=== PATIENT | female | born 1990 | race Caucasian/White ===

== ENCOUNTER 2017-08-11 19:53 | Inpatient (IN) | payer MEDICAID ==
[~2017-08-11] VITALS: Ht 149.9 cm; Wt 80.7 kg
[~2017-08-11 19:53] MED LIST: PREN1TAB62 PO
[2017-08-11 20:30] VITALS: Ht 149.9 cm; Wt 80.7 kg
[2017-08-11 20:31] VITALS: BP 110/60; PULSE 77; RESP 18
[2017-08-11] MEDS ORDERED: AMPICILLIN 2 GM/NS (PMX) 100 ML IV ONE (21:30)
[2017-08-11] MEDS ORDERED: OXYTOCIN 30 UNITS/LR 500 ML IV PRN (21:30)
[2017-08-11] MEDS ORDERED: BUTORPHANOL 2 MG INJ IV PRN ×2 (21:30)
[2017-08-11] MEDS ORDERED: IBUPROFEN 600 MG TAB PO PRN (21:30)
[2017-08-11] MEDS ORDERED: CARBOPROST 250 MCG INJ IM PRN (21:30)
[2017-08-11] MEDS ORDERED: MISOPROSTOL 200 MCG TAB PR PRN (21:30)
[2017-08-11] MEDS ORDERED: OXYTOCIN 30 UNITS/LR 500 ML IV SCH (21:30)
[2017-08-11] MEDS ORDERED: HYDROCODONE/APAP (5/325) TAB PO PRN (21:30)
[2017-08-11] MEDS ORDERED: LIDOCAINE 1% (MPF) 30 ML INJ INJ PRN (21:30)
[2017-08-11] MEDS: LACTATED RINGER'S 1,000 ML IV SCH ×2 (22:42→23:51)
[2017-08-11 23:15] LABS: HEMATOCRIT 39.2 % (37.0-47.0); HEMOGLOBIN 13.8 g/dl (12.0-16.0); LYMPHOCYTES % 19.9 % (15.0-51.0); MEAN CORPUSCULAR HEMOGLOBIN 30.5 pg (29.0-33.0); MEAN CORPUSCULAR HGB CONC 35.2 g/dl (32.0-37.0); MEAN CORPUSCULAR VOLUME 86.5 fl (82.0-101.0); MEAN PLATELET VOLUME 9.8 fl (7.4-10.4); MONOCYTES % 4.4 % (0.0-11.0); NEUTROPHILS % 74.2 % (39.0-77.0); PLATELET COUNT 266 10^3/UL (140-415); RED BLOOD COUNT 4.53 10^6/ul (4.20-5.40); RED CELL DISTRIBUTION WIDTH 13.2 % (11.5-14.5); WHITE BLOOD COUNT 9.9 10^3/ul (4.8-10.8)
[2017-08-11 23:16] LABS: BASOPHILS % 0.3 % (0.0-2.0); EOSINOPHILS # 0.1 10^3/ul (0.0-0.5); EOSINOPHILS % 0.6 % (0.0-7.0); MONOCYTE # 0.4 10^3/ul (0.3-0.9); NEUTROPHIL # 7.4 10^3/ul (1.6-7.5)
[2017-08-11 23:42] LABS: INR 0.93; PROTIME 12.5 Sec (11.9-14.9)
[2017-08-11 23:43] LABS: PARTIAL THROMBOPLASTIN TIME 27.9 Sec (25.0-35.0)
[2017-08-12] MEDS ORDERED: FENTAnyl 2MCG/ML-ROPIV 0.2% 100 ML ONE (00:17)
[2017-08-12] MEDS ORDERED: AMPICILLIN 1 GM/NS (PMX) 50 ML IV SCH (01:30)
[2017-08-12] MEDS: AMPICILLIN 1 GM/NS (PMX) 50 ML IV SCH ×3 (02:59→11:00)
[2017-08-12] MEDS: LACTATED RINGER'S 1,000 ML IV SCH ×2 (07:31→17:37)
[2017-08-12] MEDS ORDERED: ONDANSETRON 4 MG INJ IV PRN (09:00)
[2017-08-12] MEDS ORDERED: DIPHENHYDRAMINE 50 MG INJ IV PRN (09:00)
[2017-08-12] MEDS ORDERED: HYDROmorphONE 0.5 MG/0.5 ML SYG IV PRN ×2 (09:00)
[2017-08-12] MEDS ORDERED: NALOXONE (0.4 MG/ML) INJ IV PRN (09:00)
[2017-08-12] MEDS ORDERED: FENTAnyl 2MCG/ML-ROPIV 0.2% 100 ML BAG EPI SCH (09:00)
[2017-08-12] MEDS ORDERED: ZOLPIDEM 5 MG TAB PO PRN ×2 (09:00→15:00)
[2017-08-12] MEDS: METHYLERGONOVINE 0.2 MG INJ IM PRN ×2 (09:28→10:49)
[2017-08-12] MEDS: OXYTOCIN 30 UNITS/LR 500 ML IV SCH ×4 (09:43→18:41)
--- NOTE | 2017-08-12 09:52 | HP ---
Date/Time of Note Date/Time of Note DATE: 08/12/17 TIME: 09:50 OB - History Hx of Present Free Text/Dictation : 2 Para: 1 Care: Good Care Ultrasounds: Normal mid trimester US Obstetrical Complications: None Medical Complications: None Past Family/Social History * Past Medical, Surgical, Family and Obstetric Histories reviewed from chart. OB Admission Exam Vital Signs Vital Signs Vital Signs Date Time Temp Pulse Resp B/P Pulse Ox O2 Delivery O2 Flow Rate FiO2 08/11/17 20:31 98.0 77 18 110/60 97 Physical Exam HEENT: WNL Heart: Rhythm Normal Lungs: Clear, Equal Abdomen: WNL Extremities: Normal Reflexes: Normal Cervical Dilatation: 10cm Effacement: 100% Station: +3 Membranes: Ruptured Amniotic Fluid: Clear Accelerations: Accelerations Present Decelerations: No Decelerations Intensity: Mild Last 72 hours Lab Results CBC & BMP 08/11/17 22:42 OB Assessment/Plan Reason for admission: active labor Plan: Expectant Management ADRIEL DANIELS MD Aug 12, 2017 09:51
--- NOTE | 2017-08-12 09:53 | LDN ---
Date/Time of Note Date/Time of Note DATE: 08/12/17 TIME: 09:52 Delivery Summary vaginal delivery w/o complications Placenta Delivered: Spontaneously Meconium: none Episiotomy: No Anesthesia type: Epidural Estimated blood loss: 300 Sponge & Needle done & correct: Yes All needle counts correct: Yes Any foreign bodies felt in the: No Problems: ADRIEL DANIELS MD Aug 12, 2017 09:53
[2017-08-12] MEDS: METHYLERGONOVINE 0.2 MG TAB PO SCH ×3 (13:02→21:26)
[2017-08-12 14:30] VITALS: BP 115/63; PULSE 73; RESP 18
[2017-08-12] MEDS: LACTATED RINGER'S 1,000 ML IV* SCH ×2 (14:41→19:35)
[2017-08-12] MEDS ORDERED: LANOLIN 7 GM TUBE TOP PRN (15:00)
[2017-08-12] MEDS ORDERED: SENNA/DOCUSATE NA (8.6MG/50MG) TAB PO PRN (15:00)
[2017-08-12] MEDS ORDERED: WITCH HAZEL/GLYCERIN PAD PR PRN (15:00)
[2017-08-12] MEDS ORDERED: HYDROCODONE/APAP (5/325) TAB PO PRN (15:00)
[2017-08-12] MEDS ORDERED: METHYLERGONOVINE 0.2 MG INJ IM PRN (15:00)
[2017-08-12] MEDS ORDERED: ACETAMINOPHEN 325 MG TAB PO PRN (15:00)
[2017-08-12] MEDS ORDERED: BENZOCAINE 20% 56 ML SPRAY TOP PRN (15:00)
[2017-08-12] MEDS ORDERED: MAGNESIUM HYDROXIDE 30ML CUP PO PRN (15:00)
[2017-08-12] MEDS ORDERED: DIPHENHYDRAMINE 25 MG CAP PO PRN (15:00)
[2017-08-12] MEDS ORDERED: OXYTOCIN 30 UNITS/LR 500 ML IV PRN (15:00)
[2017-08-12] MEDS ORDERED: MISOPROSTOL 200 MCG TAB PR PRN (15:00)
[2017-08-12] MEDS ORDERED: CARBOPROST 250 MCG INJ IM PRN (15:00)
[2017-08-12 16:15] VITALS: BP 106/58; PULSE 66; RESP 20
[2017-08-12] MEDS: IBUPROFEN 800 MG TAB PO SCH (18:17)
[2017-08-12 19:55] VITALS: BP_SYST 52; BP_SYST 92; BP_DIAS 52; PULSE 71; RESP 19
[2017-08-13 00:05] VITALS: BP 102/61; PULSE 79; RESP 18
[2017-08-13] MEDS: IBUPROFEN 800 MG TAB PO SCH ×5 (00:15→23:54)
[2017-08-13] MEDS: METHYLERGONOVINE 0.2 MG TAB PO SCH ×4 (01:03→14:25)
[2017-08-13 04:05] VITALS: BP 95/65; PULSE 69; RESP 18
[2017-08-13] MEDS: LACTATED RINGER'S 1,000 ML IV SCH (05:15)
[2017-08-13] MEDS: LACTATED RINGER'S 1,000 ML IV* SCH (06:41)
[2017-08-13 07:45] VITALS: BP 105/51; PULSE 63; RESP 19
[2017-08-13 09:17] LABS: BASOPHILS % 0.4 % (0.0-2.0); EOSINOPHILS # 0.1 10^3/ul (0.0-0.5); EOSINOPHILS % 0.7 % (0.0-7.0); HEMATOCRIT 37.2 % (37.0-47.0); HEMOGLOBIN 13.1 g/dl (12.0-16.0); LYMPHOCYTES # 1.8 10^3/ul (0.8-2.9); LYMPHOCYTES % 16.6 % (15.0-51.0); MEAN CORPUSCULAR HEMOGLOBIN 30.7 pg (29.0-33.0); MEAN CORPUSCULAR HGB CONC 35.2 g/dl (32.0-37.0); MEAN CORPUSCULAR VOLUME 87.1 fl (82.0-101.0); MEAN PLATELET VOLUME 9.6 fl (7.4-10.4); MONOCYTE # 0.3 10^3/ul (0.3-0.9); NEUTROPHIL # 8.6 10^3/ul (1.6-7.5); NEUTROPHILS % 78.7 % (39.0-77.0); PLATELET COUNT 226 10^3/UL (140-415); RED BLOOD COUNT 4.27 10^6/ul (4.20-5.40); RED CELL DISTRIBUTION WIDTH 13.4 % (11.5-14.5)
--- NOTE | 2017-08-13 11:46 | PN ---
Date/Time of Note Date/Time of Note DATE: 08/13/17 TIME: 11:43 OB Subjective Subjective Subjective Post day Doing Well Afebrile Ambulatory Chest Clear Breasts are soft , Nipples are intact Abdomen is soft Fundus is firm Moderate amount of lochia No calf tenderness No ankle edema Laboratory Tests Test 08/13/17 08:57 White Blood Count 11.010^3/ul Red Blood Count 4.2710^6/ul Hemoglobin 13.1g/dl Hematocrit 37.2% Mean Corpuscular Volume 87.1fl Mean Corpuscular Hemoglobin 30.7pg Mean Corpuscular Hemoglobin Concent 35.2g/dl Red Cell Distribution Width 13.4% Platelet Count 66541^3/UL Mean Platelet Volume 9.6fl Neutrophils % 78.7% Lymphocytes % 16.6% Monocytes % 3.0% Eosinophils % 0.7% Basophils % 0.4% Nucleated Red Blood Cells % 0.0/100WBC Neutrophils # 8.610^3/ul Lymphocytes # 1.810^3/ul Monocytes # 0.310^3/ul Eosinophils # 0.110^3/ul Basophils # 0.010^3/ul Nucleated Red Blood Cells # 0.010^3/ul Current Medications Medications (Trade) Dose Ordered Sig/Temi Route PRN Reason Start Time Stop Time Status Last Admin Dose Admin Lactated Ringer's 1,000 ml @ 125 mls/hr Q8H IV 08/11/17 21:15 08/12/17 17:37 Ampicillin 100 ml @ 100 mls/hr ONCE ONCE IV 08/11/17 21:30 08/11/17 22:29 DC 08/11/17 22:55 Ampicillin (Ampicillin 1 Gm/ NS (Pmx)) 50 ml @ 100 mls/hr Q4H IV 08/12/17 01:30 08/12/17 01:30 DC Butorphanol Tartrate (Stadol) 1 mg Q2H PRN IV PAIN 08/11/17 21:30 08/12/17 14:44 DC Butorphanol Tartrate (Stadol) 2 mg Q2H PRN IV PAIN 08/11/17 21:30 08/12/17 14:44 DC Lidocaine 30 ml 30 ml ONCE PRN INJ EPISIOTOMY/TEARING 08/11/17 21:30 08/12/17 14:44 DC Oxytocin/Lactated Ringer's 500 ml @ 125 mls/hr ONCE -MAY REPEAT X1 IV 08/11/17 21:30 08/12/17 14:44 DC 08/12/17 14:44 Oxytocin/Lactated Ringer's 500 ml @ 125 mls/hr ONCE IV 08/11/17 21:30 08/12/17 13:49 Ibuprofen (Motrin) 600 mg ONCE PRN PO Mild Pain (Pain Score 1-3) 08/11/17 21:30 08/12/17 10:29 Acetaminophen/ Hydrocodone Bitart 2 tab 2 tab ONCE PRN PO Moderate to Severe Pain (4-10) 08/11/17 21:30 08/12/17 14:44 DC Oxytocin/Lactated Ringer's 500 ml @ 0 mls/hr ONCE PRN IV For Hemorrhage Management 08/11/17 21:30 08/12/17 09:22 Methylergonovine Maleate (Methergine) 0.2 mg ONCE PRN IM VAGINAL BLEEDING 08/11/17 21:30 08/12/17 14:44 DC 08/12/17 10:49 Carboprost Tromethamine (Hemabate) 250 mcg ONCE PRN IM VAGINAL BLEEDING 08/11/17 21:30 Misoprostol 1000 mcg 1,000 mcg ONCE PRN OK VAGINAL BLEEDING 08/11/17 21:30 08/12/17 09:38 Fentanyl/ Ropivacaine 100 ml @ ud STK-MED ONCE .ROUTE 08/12/17 00:17 08/12/17 00:18 DC Ampicillin (Ampicillin 1 Gm/ NS (Pmx)) 50 ml @ 100 mls/hr Q4H IV 08/12/17 03:00 08/12/17 14:44 DC 08/12/17 06:47 Naloxone HCl (Narcan) 0.1 mg Q2M PRN IV FOR RESP RATE 8 OR LESS 08/12/17 09:00 08/13/17 08:59 DC Hydromorphone HCl (Dilaudid) 0.2 mg Q3H PRN IV PAIN LEVEL 1-5 08/12/17 09:00 08/12/17 14:44 DC Hydromorphone HCl (Dilaudid) 0.4 mg Q3H PRN IV PAIN LEVEL 6-10 08/12/17 09:00 08/12/17 14:44 DC Diphenhydramine HCl (Benadryl) 25 mg Q6H PRN IV ITCHING 08/12/17 09:00 08/13/17 08:59 DC Ondansetron HCl (Zofran Inj) 4 mg Q6H PRN IV NAUSEA AND/OR VOMITING 08/12/17 09:00 08/13/17 08:59 DC Zolpidem Tartrate (Ambien) 5 mg HS MAY REPEAT X 1 PRN PO INSOMNIA 08/12/17 09:00 08/12/17 14:44 DC Fentanyl/ Ropivacaine 100 ml EPIDURAL INFUSION EPI 08/12/17 09:00 08/12/17 14:44 DC 08/12/17 08:46 Methylergonovine Maleate 0.2 mg 0.2 mg Q4 PO 08/12/17 13:00 08/13/17 13:00 08/13/17 09:04 Oxytocin/Lactated Ringer's 500 ml @ 125 mls/hr Q4H IV 08/12/17 14:41 08/12/17 22:40 DC Lactated Ringer's (Lr) 1,000 ml @ 125 mls/hr Q8H IV* 08/12/17 14:41 Ibuprofen (Motrin) 800 mg Q6 PO 08/12/17 18:00 08/13/17 05:27 Acetaminophen/ Hydrocodone Bitart ([place] (5/325)) 2 tab Q4H PRN PO PAIN LEVEL 6-10 08/12/17 15:00 Diphenhydramine HCl (Benadryl) 25 mg Q6H PRN PO PRURITUS 08/12/17 15:00 Zolpidem Tartrate (Ambien) 10 mg QHS PRN PO INSOMNIA 08/12/17 15:00 Senna/Docusate Sodium (Senokot-S) 1 tab BID PRN PO CONSTIPATION 08/12/17 15:00 Magnesium Hydroxide (Milk Of Mag) 30 ml Q12H PRN PO CONSTIPATION 08/12/17 15:00 Witch Marya/ Glycerin (Tucks Pads) 1 pad BEDSIDE MEDICATION PRN OK HEMORRHOID/EPISIOTMY PAIN 08/12/17 15:00 08/12/17 21:27 Benzocaine (Dermoplast [place]) 1 spray BEDSIDE MEDICATION PRN TOP HEMORRHOID/EPISIOTMY PAIN 08/12/17 15:00 12/2/17 21:26 Lanolin (Vag-Q-Tmextz) 1 applic BEDSIDE MEDICATION PRN TOP BEDSIDE FOR KI TO NIPPLES 08/12/17 15:00 08/12/17 21:26 Measles/Mumps/ Rubella Vaccine Live (Mmr Ii Vaccine) 0.5 ml ONCE ONCE SC* 08/14/17 09:00 08/14/17 09:01 Diphtheria/ Tetanus/Acell Pertussis (Adacel) 0.5 ml ONCE ONCE IM* 08/14/17 09:00 08/14/17 09:01 Varicella Virus Vaccine Live (Varivax Vaccine With Diluent) 1,350 unit ONCE ONCE SC* 08/14/17 09:00 08/14/17 09:01 Acetaminophen 650 mg 650 mg Q4H PRN PO ELEVATED TEMPERATURE 08/12/17 15:00 Oxytocin/Lactated Ringer's 500 ml @ 0 mls/hr ONCE PRN IV For Hemorrhage Management 08/12/17 15:00 Methylergonovine Maleate (Methergine) 0.2 mg ONCE PRN IM VAGINAL BLEEDING 08/12/17 15:00 Carboprost Tromethamine (Hemabate) 250 mcg ONCE PRN IM VAGINAL BLEEDING 08/12/17 15:00 Misoprostol (Cytotec) 1,000 mcg ONCE PRN OK VAGINAL BLEEDING 08/12/17 15:00 Cotto catheter removed Hemoglobin today is 13.1 New born is doing well, Breast feeding SHELIA MEDEROS MD Aug 13, 2017 11:46
[2017-08-13 16:00] VITALS: BP 106/55; PULSE 65; RESP 19
[2017-08-13 20:30] VITALS: BP 89/54; PULSE 74; RESP 18
[2017-08-14 04:29] VITALS: BP 95/53; PULSE 61; RESP 18
[2017-08-14] MEDS: IBUPROFEN 800 MG TAB PO SCH ×3 (05:38→17:50)
[2017-08-14 08:37] VITALS: BP 96/52; PULSE 67; RESP 18
[2017-08-14] MEDS ORDERED: VARICELLA VACCINE LIVE/PF 1,350 UNIT/0.5 ML ML SC* ONE (09:00)
[2017-08-14] MEDS ORDERED: DIPHTH/TET/ACEL PERTUSS (ADULT) 0.5 ML VIAL IM* ONE (09:00)
[2017-08-14] MEDS ORDERED: MEASLES,MUMPS,RUBELLA VACCINE INJ SC* ONE (09:00)
--- NOTE | 2017-08-14 09:37 | DS ---
Date/Time of Note Date/Time of Note DATE: 08/14/17 TIME: 09:36 Discharge Summary Admission/Discharge Info Admit Date/Time Aug 11, 2017 at 21:22 Discharge Date/Time Discharge Diagnosis term preg Patient Condition: Stable Hospital Course unremarkable Home Meds Reported Medications Vit-Iron Fumarate-FA ( Vitamin Tablet) 1 Each Tablet, 1 TAB PO DAILY, TAB 10/06/15 Primary Care Provider Care Physician No Primary ADRIEL DANIELS MD Aug 14, 2017 09:36
[2017-08-14 15:20] VITALS: BP 99/55; PULSE 62; RESP 18
== END 2017-08-14 18:20 | disposition home or self-care (01) | DRG 775 ==
LOC: OBT 19:53 → L-D 19:55 → OBT 21:22 → PP1 08-12 14:27
PROVIDERS: ADMIT Obstetrics & Gynecology; ATTEND Obstetrics & Gynecology
PROC: 10E0XZZ Delivery of Products of Conception, External Approach (ICD-10-PCS; principal; 2017-08-12)
DX: O80 Encounter for full-term uncomplicated delivery (principal); Z37.0 Single live birth; Z3A.38 38 weeks gestation of pregnancy
CPT/HCPCS: 62319; 85025; 85610; 85730; 86592; 86762; 86900; 86901; 87340; 90715; 90716; G0463; J0290; J2210; J2590; J3010; J7120

== ENCOUNTER 2019-01-10 08:27 | Outpatient (CLI) | payer MEDICAID ==
[~2019-01-10] VITALS: Ht 137.2 cm; Wt 75.5 kg
[2019-01-10 08:44] VITALS: Ht 137.2 cm; Wt 75.5 kg
[2019-01-10 08:45] VITALS: BP 109/70; PULSE 64; RESP 16
--- NOTE | 2019-01-10 13:43 | TRIAGE ---
OB Triage Datetime Report Generated by CPN: 01/10/2019 13:43 Datetime: 01/10/2019 13:01 Labor Evaluation Frequency: x6 Monitor Mode: External Duration (sec)2399: 60-100 Quality: Mild Pattern: Normal: <= 5 Contractions in 10 Minutes Resting Tone [place]: Relaxed Heart Rate FHR Baseline Rate: 145 Monitor Mode: External US Variability: Moderate 6-25 bpm Accelerations: 15X15 Decelerations: None Category: Category I Pain Assessment Pain Scale: 2 Pain Presence: Intermittent Pain Type: Contraction Pain Location: Abdomen Pain Goal: 3 Datetime: 01/10/2019 12:00 Labor Evaluation Frequency: x3 Monitor Mode: External Duration (sec)2399: 80-120 Quality: Mild Pattern: Normal: <= 5 Contractions in 10 Minutes Resting Tone [place]: Relaxed Heart Rate FHR Baseline Rate: 145 Monitor Mode: External US Variability: Moderate 6-25 bpm Accelerations: 15X15 Decelerations: None Category: Category I Pain Assessment Pain Scale: 2 Pain Presence: Intermittent Pain Type: Contraction Pain Location: Abdomen Pain Goal: 3 Datetime: 01/10/2019 11:35 Vaginal Exam Dilatation (cms): 0.5 Exam By: [email or web address] Datetime: 01/10/2019 09:25 Labor Evaluation Frequency: 7-10 Monitor Mode: External Duration (sec)2399: 80-90 Quality: Mild Pattern: Normal: <= 5 Contractions in 10 Minutes Resting Tone [place]: Relaxed Heart Rate FHR Baseline Rate: 135 Monitor Mode: External US Variability: Moderate 6-25 bpm Accelerations: 15X15 Decelerations: None Category: Category I Datetime: 01/10/2019 09:18 Vaginal Exam Dilatation (cms): 0.5 Station: -3 Exam By: WLIU Datetime: 01/10/2019 08:48 Assessment Type: Triage Maternal Assessment Level of Consciousness: Fully Conscious DTR's/Clonus: DTRs 2+; No Clonus Headache: Denies Blurred Vision: No Respiratory Effort: Unlabored; Regular Rhythm; Equal Expansion Breath Sounds, Left: Clear and Equal Breath Sounds, Right: Clear and Equal Nausea/Vomiting: Denies RUQ Epigastric Pain: Denies Lower Extremities Edema: None Degree: None Upper Extremities Edema: None Degree: None Facial Edema: None Fall Risk Assessment History of Falling: (0) No Secondary Diagnosis: (0) No Ambulatory Aid: (0) Bedrest/Nurse Assist IV Therapy: (0) No Gait: (0) Normal/Bedrest/Immobile Mental Status: (0) Oriented to Own Ability Fall Score: 0 Fall Risk Score Definition: No Risk: No action required Datetime: 01/10/2019 08:46 Time of Arrival: 01/10/2019 08:20 EGA: 38.0 Arrived By: Ambulatory Arrived From: Home Chief Complaint: c/o uc @ 2300 last night, vag. bleeding @0200 this am, uc [id number] apart, deny srom Movement: Present Contractions: Irregular Rupture of Membranes: Denies Vaginal Bleeding: Normal Show Vaginal Discharge: Denies Recent Sexual Intercouse: Denies Abdominal Trauma: Not Applicable Patient Complaints: Contractions Time Provider Notified: 01/10/2019 09:21 Provider Notified: Initial Plan: r/o labor
--- NOTE | 2019-01-10 16:44 | PN ---
Triage Information Date/Time January 10, 2019 Reason for visit: spotting Weeks of Gestation 38 weeks /Para 4 para 2 Diabetes: none Hypertention: none Additional information 28-year-old G4, P2 with IUP at 38 weeks presented with complaint of contractions and spotting since last night. She denies any leaking of fluid, decreased movement or any other complaints. She was examined for rule out labor and she was noted to be /-2. Objective Vital Signs Date Temp Pulse Resp B/P (MAP) Pulse Ox O2 O2 Flow FiO2 Time Delivery Rate 01/10/19 97.9 64 16 109/70 08:45 (83) Heart Rate: 130's Heart Rate Comments NST: Category 1 hyper for gestational age Exam Appearance: Alert and oriented x4 does not appear to be in any acute distress Abdomen: Soft, gravid, fundal height consider gestational age No tenderness, no rebound tenderness, no guarding no rigidity NST: Category 1 repeat BPP: 04/18 Repeat cervical exam: /-2 SAMEER: 9.1 Results/Medications Imaging Results PROCEDURE: OB ultrasound for biophysical profile CLINICAL INDICATION: Contractions TECHNIQUE: Multiple sonographic images of the pelvis were obtained. Transabdominal views of the gravid uterus are available for review. The images were reviewed on a PACS workstation. COMPARISON: None FINDINGS: breathing movement = 2/2 tone = 2/2 motion = 2/2 SAMEER = 2/2 SAMEER = 9.1 cm Single live intrauterine with cardiac activity of 148 bpm. position is cephalic. The placenta is right lateral. IMPRESSION: 1. Single live intrauterine gestation. 2. Biophysical profile = 04/18. 3. SAMEER = 9.1 cm. RPTAT: HH Disposition: Discharge Assessment/Plan IUP at 38 weeks No evidence of labor. No cervical change noted during observation testing was reassuring Patient will be discharged home with a strict labor precautions kick count and follow-up within 24 to 48 hours with primary OB office or sooner as needed All questions were answered to patient's best satisfaction. NIA LUI MD January 10, 2019 16:44
[2019-01-13] MEDS ORDERED: OXYTOCIN 30 UNITS/LR 500 ML IV SCH (07:25)
[2019-01-13] MEDS ORDERED: WITCH HAZEL/GLYCERIN PAD PR PRN (07:30)
[2019-01-13] MEDS ORDERED: DIPHENHYDRAMINE 25 MG CAP PO PRN (07:30)
[2019-01-13] MEDS ORDERED: MISOPROSTOL 200 MCG TAB PR PRN (07:30)
[2019-01-13] MEDS ORDERED: OXYTOCIN 30 UNITS/LR 500 ML IV PRN (07:30)
[2019-01-13] MEDS ORDERED: CARBOPROST 250 MCG INJ IM PRN (07:30)
[2019-01-13] MEDS ORDERED: METHYLERGONOVINE 0.2 MG TAB PO PRN (07:30)
[2019-01-13] MEDS ORDERED: HYDROCODONE/APAP (5/325) TAB PO PRN (07:30)
[2019-01-13] MEDS ORDERED: NACL 0.9% 3 ML SYG IV SCH (07:30)
[2019-01-13] MEDS ORDERED: ONDANSETRON 4 MG INJ IV PRN (07:30)
[2019-01-13] MEDS ORDERED: IBUPROFEN 600 MG TAB PO SCH (07:30)
[2019-01-13] MEDS ORDERED: ZOLPIDEM 5 MG TAB PO PRN (07:30)
[2019-01-13] MEDS ORDERED: METHYLERGONOVINE 0.2 MG INJ IM PRN (07:30)
[2019-01-13] MEDS ORDERED: LANOLIN HPA 1 PKT TOP PRN (07:30)
--- NOTE | 2019-01-13 07:30 | LDN ---
Date/Time of Note Date/Time of Note DATE: 01/13/19 TIME: 07:28 Delivery Summary 01/13/2019 Placenta Delivered: Spontaneously Meconium: none Episiotomy: No Indication for episiotomy N/A Laceration repair: None Anesthesia type: None Sponge & Needle done & correct: Yes All needle counts correct: Yes Any foreign bodies felt in the: No Infant Delivery Information Sex Infant Sex: male Apgars 1 Minute: 9 5 Minute: 9 Suctioning Nose & mouth suctioned at barb: Yes Delee suction performed: Yes Umbilical Cord Umbilical cord with: 3 Vessels Cord presentations: no nuchal cord Cord Blood was obtained: Yes Mother & Baby Disposition Disposition Cord avulsed during placental removal Manual extraction done, Placenta delivered complete Fundus was firm. Bleeding controlled Repeat manual exploration of the uterus, did not show any evidence of placental remaineder no perineal laceration NIA LUI MD January 13, 2019 07:30
[2019-01-13] MEDS ORDERED: SENNA/DOCUSATE NA (8.6MG/50MG) TAB PO SCH (09:00)
[2019-01-15] MEDS ORDERED: VARICELLA VACCINE LIVE/PF 1,350 UNIT/0.5 ML ML SC* ONE (09:00)
[2019-01-15] MEDS ORDERED: DIPHTH/TET/ACEL PERTUSS (ADULT) 0.5 ML VIAL IM* ONE (09:00)
[2019-01-15] MEDS ORDERED: MEASLES,MUMPS,RUBELLA VACCINE INJ SC* ONE (09:00)
== END 2019-01-10 13:30 | disposition home or self-care (01) ==
LOC: L-D 08:27 → OBT 08:27
PROVIDERS: ATTEND Obstetrics & Gynecology
DX: O46.8X3 Other antepartum hemorrhage, third trimester (principal); Z3A.38 38 weeks gestation of pregnancy
CPT/HCPCS: 76818; Z7500; G0463

== ENCOUNTER 2019-01-13 06:28 | Inpatient (IN) | payer MEDICAID ==
[~2019-01-13] VITALS: Ht 147.3 cm; Wt 76.2 kg
[2019-01-13 06:36] VITALS: Ht 147.3 cm; Wt 76.2 kg
[2019-01-13 06:41] VITALS: BP 119/68; PULSE 78; RESP 18
[2019-01-13] MEDS ORDERED: LACTATED RINGER'S 1,000 ML IV SCH (06:52)
[2019-01-13] MEDS ORDERED: IBUPROFEN 600 MG TAB PO PRN (07:00)
[2019-01-13] MEDS ORDERED: MISOPROSTOL 200 MCG TAB PR PRN ×2 (07:00→10:00)
[2019-01-13] MEDS ORDERED: OXYTOCIN 30 UNITS/LR 500 ML IV SCH ×3 (07:00→10:00)
[2019-01-13] MEDS ORDERED: BUTORPHANOL 2 MG INJ IV PRN (07:00)
[2019-01-13] MEDS ORDERED: OXYCODONE/ACETAMINOPHEN (5/325) TAB PO PRN (07:00)
[2019-01-13] MEDS ORDERED: METHYLERGONOVINE 0.2 MG INJ IM PRN ×2 (07:00→10:00)
[2019-01-13] MEDS ORDERED: LIDOCAINE 1% (MPF) 30 ML INJ INJ PRN (07:00)
[2019-01-13] MEDS ORDERED: OXYTOCIN 30 UNITS/LR 500 ML IV PRN ×2 (07:00→10:00)
[2019-01-13] MEDS ORDERED: CARBOPROST 250 MCG INJ IM PRN ×2 (07:00→10:00)
--- NOTE | 2019-01-13 07:23 | HP ---
Date/Time of Note Date/Time of Note DATE: 01/13/19 TIME: 07:20 OB - History Hx of Present Free Text/Dictation 01/13/2019 : 4 Para: 2 Care: Good Care Other Concerns: 28-year-old G4, P2 with IUP at 38 weeks and [address] Melo presented in active labor. She was complete complete station +2 and had significant urge to push. records are available. No complication during course. GBS status unknown. Records reviewed. Denies any medical problem, surgical history and allergy history. Past Family/Social History * Past Medical, Surgical, Family and Obstetric Histories reviewed from chart. Blood Type: O+ Rubella: immune RPR/VDRL: Negative GBS Status: Unknown HBsAG: Negative OB Admission Exam Vital Signs Vital Signs Vital Signs Date Temp Pulse Resp B/P (MAP) Pulse Ox O2 O2 Flow FiO2 Time Delivery Rate 01/13/19 98.8 78 18 119/68 Room Air 06:41 (85) Physical Exam HEENT: WNL Lungs: Clear Abdomen: WNL Reflexes: Normal Cervical Dilatation: 10cm Effacement: 100% Station: +2 Membranes: Intact Amniotic Fluid: Other (s/p AROM. clear fuld noted) Heart Rate: 130's Accelerations: Accelerations Present Varibility: Moderate Intensity: Moderate OB Assessment/Plan Reason for admission: active labor Other Assessment: IUP at 38 weeks and 3 days Active labor Second stage Has urge to push AROM. clear fluid noted Anticipate NIA LUI MD January 13, 2019 07:23
[2019-01-13] MEDS ORDERED: CEFAZOLIN 2 GM/50 ML (PMX) 50 ML IVPB ONE (07:30)
[2019-01-13 09:05] VITALS: BP 96/52; PULSE 73; RESP 18
[2019-01-13] MEDS ORDERED: ACETAMINOPHEN 325 MG TAB PO PRN (10:00)
[2019-01-13] MEDS ORDERED: WITCH HAZEL/GLYCERIN PAD PR PRN (10:00)
[2019-01-13] MEDS ORDERED: DIBUCAINE 1% 30 GM OINT TOP PRN (10:00)
[2019-01-13] MEDS ORDERED: BENZOCAINE 20% 56 ML SPRAY TOP PRN (10:00)
[2019-01-13] MEDS: IBUPROFEN 600 MG TAB PO SCH ×3 (11:20→23:26)
[2019-01-13] MEDS: LANOLIN HPA 1 PKT TOP PRN ×2 (11:21→15:58)
[2019-01-13 15:45] VITALS: BP 104/55; PULSE 73; RESP 18
[2019-01-13 20:22] VITALS: BP 99/54; PULSE 79; RESP 20
[2019-01-14 03:59] VITALS: BP 99/60; PULSE 70; RESP 20
[2019-01-14] MEDS: IBUPROFEN 600 MG TAB PO SCH ×3 (05:48→17:54)
[2019-01-14 08:20] VITALS: BP 99/49; PULSE 68; RESP 18
[2019-01-14 15:45] VITALS: BP 100/55; PULSE 70; RESP 18
[2019-01-14 16:15] VITALS: BP 100/55; PULSE 70; RESP 18
[2019-01-14 19:50] VITALS: BP 114/56; PULSE 72; RESP 20
[2019-01-15] MEDS: IBUPROFEN 600 MG TAB PO SCH ×3 (00:16→11:45)
[2019-01-15 04:00] VITALS: BP 98/61; PULSE 68; RESP 19
[2019-01-15 08:20] VITALS: BP 100/67; PULSE 67; RESP 18
--- NOTE | 2019-01-15 09:20 | LDN ---
Date/Time of Note Date/Time of Note DATE: 01/15/19 TIME: 09:19 Delivery Summary vaginal delivery Placenta Delivered: Spontaneously Meconium: none Episiotomy: No Anesthesia type: None Estimated blood loss: 300 Sponge & Needle done & correct: Yes All needle counts correct: Yes Any foreign bodies felt in the: No ADRIEL DANIELS MD January 15, 2019 09:20
--- NOTE | 2019-01-15 09:21 | DS ---
Date/Time of Note Date/Time of Note DATE: 01/15/19 TIME: 09:20 Discharge Summary Admission/Discharge Info Admit Date/Time January 13, 2019 at 06:40 Discharge Date/Time Discharge Diagnosis term Patient Condition: Stable Hospital Course unremarkable Home Meds Reported Medications Vit-Iron Fumarate-FA ( Vitamin Tablet) 1 Each Tablet, 1 TAB PO DAILY, TAB 10/06/15 Primary Care Provider Care Physician No Primary ADRIEL DANIELS MD January 15, 2019 09:21
--- NOTE | 2019-01-16 12:36 | DELSUM ---
Delivery Summary A-C Datetime Report Generated by CPN: 01/16/2019 12:36 DELIVERY PERSONNEL Test Evaluator: Susan Robbins MATERNAL INFORMATION Delivery Anesthesia: None Medications in Delivery: OXYTOCIN 30UNITS IN 500ML LR Delivery QBL (ml): 488 Placenta Cultured: No Maternal Complications: None Other Maternal Complications: IN LABOR LABOR SUMMARY EDC: 01/24/2019 00:00 No. Babies in Womb: 1 Attempted: No Labor Anesthesia: None LABOR INFORMATION Reason for Induction: Not Applicable Onset of Labor: 01/13/2019 04:00 Complete Dilatation: 01/13/2019 06:59 Oxytocin: N/A Group B Beta Strep: Negative Antibiotics # of Doses: 0 Steroids Given: None Reason Steroids Not Administered: Not Applicable MEMBRANES Membranes Rupture Method: Artificial Rupture of Membranes: 01/13/2019 06:59 Length of Rupture (hr): 0.05 Amniotic Fluid Color: Clear Amniotic Fluid Amount: Small Amniotic Fluid Odor: None STAGES OF LABOR Stage 1 hr: 2 Stage 1 min: 59 Stage 2 hr: 0 Stage 2 min: 3 Stage 3 hr: 0 Stage 3 min: 1 Total Time in Labor hr: 3 Total Time in Labor min: 3 VAGINAL DELIVERY Episiotomy: None Laceration Extension: N/A Laceration Type: None Laceration Repair: Not Applicable Initial Vag Sponge Count: 10 Final Vag Sponge Count: 10 Initial Vag Sharps Count: 1 Final Vag Sharps Count: 1 Sponge Count Correct: Yes; Vaginal Sweep Performed Sharps Count Correct: Yes BABY A INFORMATION Infant Delivery Date/Time: 01/13/2019 07:02 Method of Delivery: Vaginal Born in Route : No : N/A Forceps: N/A Vacuum Extraction: N/A Shoulder Dystocia : N/A SHOULDER DYSTOCIA BABY A Delivery Date/Time: 01/13/2019 07:02 PRESENTATION/POSITION BABY A Presentation: Cephalic Cephalic Presentation: Vertex Vertex Position: Left Occipital Anterior Breech Presentation: N/A PLACENTA INFORMATION BABY A Placenta Delivery Time : 01/13/2019 07:03 Placenta Method of Delivery: Manual Removal Placenta Status: Delivered SCORES BABY A Heart Rate 1 min: >100 bpm Resp Effort 1 min: Good Cry Reflex Irritability 1 min: Cough/Sneeze/Pulls Away Muscle Tone 1 min: Active Motion Color 1 min: Body [place], Extremit Blue Resuscitation Effort 1 min: Tactile Stimulation SCORE 1 MIN: 9 Heart Rate 5 min: >100 bpm Resp Effort 5 min: Good Cry Reflex Irritability 5 min: Cough/Sneeze/Pulls Away Muscle Tone 5 min: Active Motion Color 5 min: Body [place], Extremit Blue Resuscitation Effort 5 min: Tactile Stimulation SCORE 5 MIN: 9 INFORMATION BABY A Gestational Age at Delivery: 38.3 Gestational Status: Early Term- 37- 38.6 Weeks Infant Outcome : Liveborn Infant Condition : Stable Infant Sex: Male IDENTIFICATION/MEDS BABY A ID Band Number: [id number] ID Band Location: Right Leg; Left Arm Sensor Applied: Yes Sensor Number: [id number] Sensor Location : Cord Clamp Vitamin K Given : Not Given Erythromycin Given: Not Given WEIGHT/LENGTH BABY A Infant Birthweight (gm): 2860 Infant Weight (lb): 6 Weight (oz): 5 Infant Length (in): 18.75 Infant Length (cm): 47.63 CORD INFORMATION BABY A No. Cord Vessels: 3 Nuchal Cord : N/A Cord Blood Taken: Yes Banking/Donate Info: NONE Infant Suction: Mouth; Nose ASSESSMENT BABY A Infant Complications: None Physical Findings at Delivery: Within Normal Limits Infant Respirations: Appears Normal Auto Technician/ALS Called : No Care By: MINISTERIO Venegas RN Transferred To: Remains with Mother
== END 2019-01-15 12:35 | disposition home or self-care (01) | DRG 807 ==
LOC: OBT 06:28 → L-D 06:30 → OBT 06:40 → PP1 08:47
PROVIDERS: ADMIT Obstetrics & Gynecology; ATTEND Obstetrics & Gynecology
PROC: 10907ZC Drainage of Amniotic Fluid, Therapeutic from Products of Conception, Via Natural or Artificial Opening (ICD-10-PCS; 2019-01-13)
PROC: 10E0XZZ Delivery of Products of Conception, External Approach (ICD-10-PCS; principal; 2019-01-15)
DX: O80 Encounter for full-term uncomplicated delivery (principal); Z37.0 Single live birth; Z3A.38 38 weeks gestation of pregnancy
CPT/HCPCS: 85025; 85610; 85730; 86592; 86850; 86900; 86901; 87340; G0463; J0690; J2210; J2590; J7120